=== PATIENT | male | born 1995 | race Caucasian/White ===

== ENCOUNTER 2022-03-26 12:03 | Emergency (ER) | payer BC ==
[2022-03-26] MEDS ORDERED: LORazepam 2 MG/ML VIAL ONE (14:10)
[2022-03-26 14:17] LABS: Absolute Lymphocytes (CBC) 1.4 K/uL (0.7-4.9); Lymphocytes % 13.8 % (15.3-44.8); MCV 85.5 fL (80-100); MPV 7.5 fL (7.6-11.3); RBC Red Blood Cell Count 5.51 M/uL (4.33-5.43)
[2022-03-26 14:49] LABS: Albumin 5.1 g/dL (3.4-5.0); Bilirubin Total 0.5 mg/dL (0.2-1.0); Potassium 3.3 mmol/L (3.5-5.1); Protein, Total 9.1 g/dL (6.4-8.2); Troponin High Sensitivity 8.5 pg/mL (<58.9)
--- NOTE | 2022-03-26 14:53 | ER ---
Nurse's Notes [facility] Name: David Rock Age: 26 yrs Sex: Male : 1995 Arrival Date: 03/26/2022 Time: 12:04 Bed 15 Private MD: Diagnosis: Generalized anxiety disorder;Chest pain, unspecified Presentation: 03/26 12:14 Chief complaint: Patient states: Chest pain and numbness to bilateral hands and feet ss that began at 0900 this AM. Pt states, "I have anxiety attacks and this one just hasn't gone away.". Coronavirus screen: Client denies travel out of the [place] in the last 14 days. Ebola Screen: Patient denies exposure to infectious person. Patient denies travel to an Ebola-affected area in the 21 days before illness onset. Initial Sepsis Screen: Does the patient meet any 2 criteria? No. Patient's initial sepsis screen is negative. Does the patient have a suspected source of infection? No. Patient's initial sepsis screen is negative. Risk Assessment: Do you want to hurt yourself or someone else? Patient reports no desire to harm self or others. Onset of symptoms was March 26, 2022. 12:14 Method Of Arrival: Ambulatory ss 12:14 Acuity: GIOVANY 3 ss Triage Assessment: 14:00 General: Appears uncomfortable, Behavior is anxious. Pain: Complains of pain in chest. jg9 Cardiovascular: Reports chest pain, diaphoresis, lightheadedness, nausea, shortness of breath. Historical: - Allergies: 12:16 No Known Allergies; ss - Home Meds: 12:16 Prozac Oral [Active]; Ativan Oral [Active]; ss - PMHx: 12:16 Anxiety; ss - PSHx: 12:16 None; ss - Immunization history:: Client reports having NOT received the Covid vaccine. - Social history:: Smoking status: Patient reports use of chewing tobacco. Screenin:00 Abuse screen: Denies threats or abuse. Denies injuries from another. Nutritional jg9 screening: No deficits noted. Tuberculosis screening: No symptoms or risk factors identified. Fall Risk None identified. Assessment: 14:00 Pain: Pain does not radiate. Pain began 1 day ago. jg9 14:34 Reassessment: Patient and/or family updated on plan of care and expected duration. Pain jg9 level reassessed. Patient is alert, oriented x 3, equal unlabored respirations, skin warm/dry/pink. 15:00 Reassessment: Patient and/or family updated on plan of care and expected duration. Pain jg9 level reassessed. Patient is alert, oriented x 3, equal unlabored respirations, skin warm/dry/pink. Patient states feeling better. Vital Signs: 12:14 BP 132 / 94; Pulse 76; Resp 14; Temp 98.4(TE); Pulse Ox 100% on R/A; Weight 86.18 kg; Height 5 ft. 9 in. (175.26 cm); Pain 6/10; 14:30 BP 131 / 83; Pulse 63; Resp 12 S; Pulse Ox 95% on R/A; jg9 15:00 BP 122 / 57; Pulse 67; Resp 15 S; Pulse Ox 96% on R/A; jg9 12:14 Body Mass Index 28.06 (86.18 kg, 175.26 cm) ED Course: 12:04 Patient arrived in ED. as 12:16 Triage completed. 12:16 Arm band placed on right wrist. 12:21 [facility] 12:21 Sam Hansen MD is Attending Physician. [facility] 13:50 Inserted saline lock: 20 gauge in right antecubital area, using aseptic technique. zm Blood collected. 13:51 Troponin High Sensitivity Sent. zm 13:51 CMP Sent. zm 13:51 CBC with Diff Sent. zm 13:53 Parris Medel, RN is Primary Nurse. jg9 14:00 Patient has correct armband on for positive identification. Bed in low position. Call jg9 light in reach. Side rails up X 1. Client placed on continuous cardiac and pulse oximetry monitoring. NIBP monitoring applied. 14:00 Patient maintains SpO2 saturation greater than 95% on room air. jg9 14:36 Appears to be sleeping. jg9 15:13 No provider procedures requiring assistance completed. jg9 15:13 IV discontinued. jg9 Administered Medications: 14:08 Drug: Ativan (LORazepam) 1 mg Route: IVP; Site: right antecubital; jg9 14:40 Follow up: Response: No adverse reaction; Anxiety decreased jg9 Medication: 15:14 VIS not applicable for this client. jg9 Outcome: 14:52 Discharge ordered by . mitra 15:13 Condition: improved jg9 15:24 Discharged to home ambulatory. jg9 15:24 Discharge instructions given to patient, Instructed on discharge instructions, follow up and referral plans. Demonstrated understanding of instructions, follow-up care. 15:24 Patient left the ED. jg9 Signatures: Blaire Cunningham Shelby, RN RN Parris Medel RN RN jg9 Lyric Cunningham Jennifer, FNP FNP jh7 Corrections: (The following items were deleted from the chart) 12:17 12:14 Chief complaint: Patient states: Chest pain and numbness to bilateral hands and ss feet that began at 0900 this AM. ss
--- NOTE | 2022-03-26 14:53 | EDPHYS ---
Physician Documentation [facility] Name: David Rock Age: 26 yrs Sex: Male : 1995 Arrival Date: 03/26/2022 Time: 12:04 Bed 15 Private MD: ED Physician Sam Hansen Historical: - Allergies: 03/26 12:16 No Known Allergies; ss - Home Meds: 12:16 Prozac Oral [Active]; Ativan Oral [Active]; ss - PMHx: 12:16 Anxiety; ss - PSHx: 12:16 None; ss - Immunization history:: Client reports having NOT received the Covid vaccine. - Social history:: Smoking status: Patient reports use of chewing tobacco. Vital Signs: 12:14 BP 132 / 94; Pulse 76; Resp 14; Temp 98.4(TE); Pulse Ox 100% on R/A; Weight 86.18 kg; ss Height 5 ft. 9 in. (175.26 cm); Pain 6/10; 14:30 BP 131 / 83; Pulse 63; Resp 12 S; Pulse Ox 95% on R/A; jg9 15:00 BP 122 / 57; Pulse 67; Resp 15 S; Pulse Ox 96% on R/A; jg9 12:14 Body Mass Index 28.06 (86.18 kg, 175.26 cm) MDM: 13:52 Patient medically screened. [facility] 03/26 12:42 Order name: CBC with Diff; Complete Time: 14:[address] [facility] 03/26 12:42 Order name: CMP; Complete Time: 14:[address] [facility] 03/26 12:27 Order name: EKG; Complete Time: 12:28 03/26 12:27 Order name: EKG - Nurse/Tech; Complete Time: 12:27 03/26 12:42 Order name: Troponin High Sensitivity; Complete Time: 14:[address] [facility] Administered Medications: 14:08 Drug: Ativan (LORazepam) 1 mg Route: IVP; Site: right antecubital; jg9 14:40 Follow up: Response: No adverse reaction; Anxiety decreased jg9 Disposition Summary: 03/26/22 14:52 Discharge Ordered Location: Home [facility] Problem: an ongoing problem [facility] Symptoms: have improved [facility] Condition: Stable [facility] Diagnosis - Generalized anxiety disorder jh7 - Chest pain, unspecified 7 Followup: [facility] - With: Private Physician - When: 2 - 3 days - Reason: Recheck today's complaints Discharge Instructions: - Discharge Summary Sheet 7 - Panic Attack 7 - Chest Wall Pain jh7 - Nonspecific Chest Pain, Adult, [id number] Forms: - Medication Reconciliation Form [facility] - Thank You Letter [facility] Signatures: Dispatcher [employer] Norma Carrillo RN RN ss Parris Medel RN RN jg9 Parris Gonzalez, HARVESTING CONTRACTOR HARVESTING CONTRACTOR [facility]
[2022-03-26 16:21] VITALS: TEMP 98.4
[2022-03-26 16:24] VITALS: BP 122/57; O2SAT 96
--- NOTE | 2022-03-27 13:54 | EKG ---
Test Date: 2022-03-26 Test Time: 12:26:51 [employer] Operator: MERON MEASUREMENT RESULTS: Intervals: Rate: 76 MT: 122 QRSD: 102 QT: 352 QTc: 396 [place]: P: 57 MT: 122 QRS: 73 T: 49 INTERPRETIVE STATEMENTS: Normal sinus rhythm Normal ECG No previous ECG available for comparison Electronically Signed On 03-27-22 13:51:16 CDT by Calvin Thomas
== END 2022-03-26 15:24 | disposition home or self-care (01) ==
LOC: ER 12:03
DX: R07.9 Chest pain, unspecified (principal); F41.1 Generalized anxiety disorder; F17.220 Nicotine dependence, chewing tobacco, uncomplicated
CPT/HCPCS: 36415; 80053; 84484; 85025; 93005